=== PATIENT | female | born 1975 | race Caucasian/White ===

== ENCOUNTER 2016-09-24 21:31 | Inpatient (IN) | payer SELFPAY ==
--- NOTE | 2016-09-24 22:39 | Emergency Department Report ---
ED Neuro Deficit HPI - General Chief Complaint: Chest Pain Stated Complaint: CHEST PAIN/WEAKNESS Time Seen by Provider: 09/24/16 22:30 Source: patient, EMS Mode of arrival: Stretcher Limitations: No Limitations - History of Present Illness Initial Comments: 41-year-old female with history of complex migraines with multiple prior episodes of left sided hemiplegia with negative prior MRIs multiple times at this facility and well-documented in the EMR presented today because of left upper extremity and left lower extremity weakness. Patient states that all day she's had some nausea and vomiting around 6 PM she had left upper extremity and left lower extremity weakness and difficulty ambulating. Patient is not diabetic and not on insulin. She does have a history of hypertension but states she takes her medications. She also has a history of seizure disorder but has not had any seizure episodes today. 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 - Related Data Home Medications: Home Medications Medication Instructions Recorded Confirmed Last Taken Amitriptyline [Elavil] 75 mg PO QHS 08/14/15 09/24/16 1 Day Ago [address] [Depakote Dr] 1,000 mg PO BID 08/14/15 09/24/16 1 Day Ago 1000 Lisinopril [Zestril TAB] 40 mg PO QDAY 08/14/15 09/24/16 1 Day Ago 40 Topiramate [Topamax] 50 mg PO DAILY 08/14/15 09/24/16 1 Day Ago 50 Verapamil HCl [Verapamil ER] 240 mg PO DAILY 02/25/16 09/24/16 1 Day Ago 240 Famotidine [Pepcid] 20 mg PO DAILY 09/24/16 09/24/16 Unknown Hydrochlorothiazide [HCTZ] 25 mg PO QDAY 09/24/16 09/24/16 Unknown Omeprazole Magnesium [PriLOSEC Otc] 20 mg PO QDAY 09/24/16 09/24/16 Unknown Rivaroxaban [Xarelto] 20 mg PO QDAY 09/24/16 09/24/16 Unknown Rosuvastatin (Nf) [Crestor] 1 tab PO QHS 09/24/16 09/24/16 Unknown Sucralfate [Carafate] 1 gm PO DAILY 09/24/16 09/24/16 Unknown Allergies/Adverse Reactions: Allergies Allergy/AdvReac Type Severity Reaction Status Date / Time acetaminophen [From Fioricet] Allergy Hives Verified 02/18/15 23:58 butalbital [From Fioricet] Allergy Hives Verified 02/18/15 23:58 caffeine [From Fioricet] Allergy Hives Verified 02/18/15 23:58 gabapentin [From Neurontin] Allergy Unknown Verified 02/18/15 23:58 ketorolac tromethamine Allergy Itching Verified 02/18/15 23:58 [From Toradol] levofloxacin [From Levaquin] Allergy Unknown Verified 02/18/15 23:58 naproxen [From Naprosyn] Allergy Swelling Verified 02/18/15 23:58 nitroglycerin Allergy Rash Verified 02/18/15 23:58 NSAIDS (Non-Steroidal Allergy Unknown Verified 09/24/16 23:45 Anti-Inflamma prochlorperazine edisylate Allergy Unknown Verified 02/18/15 23:58 [From Compazine] prochlorperazine maleate Allergy Unknown Verified 02/18/15 23:58 [From Compazine] Sulfa (Sulfonamide Allergy Hives Verified 08/09/14 21:59 Antibiotics) ibuprofen [From Motrin] AdvReac Unknown Verified 08/09/14 21:59 metoclopramide HCl AdvReac Unknown Verified 08/09/14 21:59 [From Reglan] tramadol AdvReac Shortness Verified 02/06/16 14:57 of Breath ED Review of Systems ROS: Stated complaint: CHEST PAIN/WEAKNESS Other details as noted in HPI Comment: All other systems reviewed and negative Constitutional: denies: chills, fever ENT: denies: ear pain Respiratory: denies: cough Cardiovascular: chest pain Gastrointestinal: nausea. denies: abdominal pain Genitourinary: denies: urgency, dysuria Skin: denies: rash Neurological: weakness, numbness. denies: headache ED Past Medical Hx - Past Medical History Previous Medical History?: Yes Hx Hypertension: Yes Hx CVA: (multiple negative MRI workups for CVA when presented with complic. migraine) Hx Headaches / Migraines: Yes (hemiplegic, and complicated migraines) Hx Seizures: Yes Hx Kidney Stones: Yes Hx Asthma: Yes Hx COPD: No Additional medical history: pancreatitis,DVT,cervical ca and treatment [id number] - Surgical History Past Surgical History?: Yes Hx Cholecystectomy: Yes Hx Appendectomy: Yes Additional Surgical History: Stents in kidneys and removed, bowel repair, liposuction, partial hysterectomy - Social History Smoking Status: Former Smoker Substance Use Type: None - Medications Home Medications: Home Medications Medication Instructions Recorded Confirmed Last Taken Type Amitriptyline [Elavil] 75 mg PO QHS 08/14/15 09/24/16 1 Day Ago History [address] [Depakote Dr] 1,000 mg PO BID 08/14/15 09/24/16 1 Day Ago History 1000 Lisinopril [Zestril TAB] 40 mg PO QDAY 08/14/15 09/24/16 1 Day Ago History 40 Topiramate [Topamax] 50 mg PO DAILY 08/14/15 09/24/16 1 Day Ago History 50 Verapamil HCl [Verapamil ER] 240 mg PO DAILY 02/25/16 09/24/16 1 Day Ago History 240 Famotidine [Pepcid] 20 mg PO DAILY 09/24/16 09/24/16 Unknown History Hydrochlorothiazide [HCTZ] 25 mg PO QDAY 09/24/16 09/24/16 Unknown History Omeprazole Magnesium [PriLOSEC Otc] 20 mg PO QDAY 09/24/16 09/24/16 Unknown History Rivaroxaban [Xarelto] 20 mg PO QDAY 09/24/16 09/24/16 Unknown History Rosuvastatin (Nf) [Crestor] 1 tab PO QHS 09/24/16 09/24/16 Unknown History Sucralfate [Carafate] 1 gm PO DAILY 09/24/16 09/24/16 Unknown History ED Neuro Physical Exam - General Limitations: No Limitations General appearance: alert Suspected Stroke: Yes - Head Head exam: Present: atraumatic - Eye Eye exam: Present: normal appearance - ENT ENT exam: Present: normal exam - Neck Neck exam: Present: normal inspection - Respiratory Respiratory exam: Present: normal lung sounds bilaterally. Absent: respiratory distress - Cardiovascular Cardiovascular Exam: Present: regular rate, normal rhythm - GI/Abdominal GI/Abdominal exam: Present: soft. Absent: distended, tenderness - Neurological Exam Neurological exam: Present: alert, oriented X3 - NIHSS Assessment Interval: Baseline 1a. Level of Consciousness: alert 1b. LOC Questions: answers correctly 1c. LOC Commands: performs tasks correctly 2. Best Gaze: normal 3. Visual: no visual loss 4. Facial Palsy: minor paralysis 5b. Motor Arm Right: no drift 5a. Motor Arm Left: some gravity effort 6a. Motor Leg Left: no drift 6b. Motor Leg Right: some gravity effort 7. Limb Ataxia: absent 8. Sensory: mild/moderate sensory loss 9. Best Language: no aphasia 10. Dysarthria: normal 11. Extinction/Inattention: no abnormality Total Score: 6 Stroke Severity: Moderate Stroke - Psychiatric Psychiatric exam: Present: anxious - Skin Skin exam: Present: intact ED Course Vital Signs 09/24/16 09/24/16 09/24/16 22:10 22:32 22:38 Temperature 99 F Pulse Rate 92 H Respiratory 18 18 Rate Blood Pressure 147/96 O2 Sat by Pulse 100 84 Oximetry 09/24/16 09/24/16 09/24/16 23:00 23:30 23:43 Temperature Pulse Rate 81 91 H Respiratory 19 17 18 Rate Blood Pressure 144/74 150/71 O2 Sat by Pulse 97 97 Oximetry - Reevaluation(s) Reevaluation #1: 09/25/16 00:17 Patient's symptoms appear to be improving slightly, is able to lift up the left arm easier off the bed, however has not regained full strength, facial droop does appear to have resolved. Patient's nausea and pain is also significantly improved. - Consultations Consultation #1: 09/24/16 23:02 Requested consult for neurology, awaiting callback 09/24/16 23:[address] Kole Rodríguez, neurologist president & [employer]o [employer], described the patient's presentation and exam. Had a discussion about whether the patient is a candidate for thrombolysis. Dr. Rodríguez and I both agreed that the patient is not a good candidate due to multiple reasons including the patient being on Xarelto and aspirin, the patient having a lower chance of benefit at 5 hours from onset and that the diagnosis is not clearly a stroke. - Lab Data Result diagrams: 09/24/16 22:28 09/24/16 22:28 Lab Results 09/24/16 09/24/16 09/24/16 Range/Units 22:28 22:28 22:28 WBC 7.9 (4.5-11.0) K/mm3 RBC 3.81 (3.65-5.03) M/mm3 Hgb 12.4 (10.1-14.3) gm/dl Hct 34.7 (30.3-42.9) % MCV 91 (79-97) fl MCH 33 H (28-32) pg MCHC 36 H (30-34) % RDW 13.1 L (13.2-15.2) % Plt Count 258 (140-440) K/mm3 Lymph % (Auto) 27.4 (13.4-35.0) % [place] % (Auto) 6.5 (0.0-7.3) % Eos % (Auto) 1.2 (0.0-4.3) % Baso % (Auto) 0.3 (0.0-1.8) % Lymph # 2.2 (1.2-5.4) K/mm3 [place] # 0.5 (0.0-0.8) K/mm3 Eos # 0.1 (0.0-0.4) K/mm3 Baso # 0.0 (0.0-0.1) K/mm3 Seg Neutrophils % 64.6 (40.0-70.0) % Seg Neutrophils # 5.1 (1.8-7.7) K/mm3 PT 12.5 (12.2-14.9) Sec. INR 0.94 (0.87-1.13) APTT 27.2 (24.2-36.6) Sec. Thrombin Time (15.1-19.6) Sec. Sodium 141 (137-145) mmol/L Potassium 3.5 L (3.6-5.0) mmol/L Chloride 100.7 (98-107) mmol/L Carbon Dioxide 25 (22-30) mmol/L Anion Gap 19 mmol/L BUN 18 H (7-17) mg/dL Creatinine 0.8 (0.7-1.2) mg/dL Estimated GFR > 60 ml/min BUN/Creatinine Ratio 22.50 % Glucose 128 H (65-100) mg/dL Calcium 9.5 (8.4-10.2) mg/dL Troponin T < 0.010 (0.00-0.029) ng/mL 09/24/16 Range/Units 22:28 WBC (4.5-11.0) K/mm3 RBC (3.65-5.03) M/mm3 Hgb (10.1-14.3) gm/dl Hct (30.3-42.9) % MCV (79-97) fl MCH (28-32) pg MCHC (30-34) % RDW (13.2-15.2) % Plt Count (140-440) K/mm3 Lymph % (Auto) (13.4-35.0) % [place] % (Auto) (0.0-7.3) % Eos % (Auto) (0.0-4.3) % Baso % (Auto) (0.0-1.8) % Lymph # (1.2-5.4) K/mm3 [place] # (0.0-0.8) K/mm3 Eos # (0.0-0.4) K/mm3 Baso # (0.0-0.1) K/mm3 Seg Neutrophils % (40.0-70.0) % Seg Neutrophils # (1.8-7.7) K/mm3 PT (12.2-14.9) Sec. INR (0.87-1.13) APTT (24.2-36.6) Sec. Thrombin Time 15.4 (15.1-19.6) Sec. Sodium (137-145) mmol/L Potassium (3.6-5.0) mmol/L Chloride (98-107) mmol/L Carbon Dioxide (22-30) mmol/L Anion Gap mmol/L BUN (7-17) mg/dL Creatinine (0.7-1.2) mg/dL Estimated GFR ml/min BUN/Creatinine Ratio % Glucose (65-100) mg/dL Calcium (8.4-10.2) mg/dL Troponin T (0.00-0.029) ng/mL - Medical Decision Making I had seen the patient at triage and called a code stroke based on the initial exam. Upon documentation reviewed does appear that the patient has had the same symptoms multiple times secondary to complex migraine. Labs, IV, monitor, CT of head ordered x-ray at triage ekg shows nsr at rate of [address]-t changes When I asked the patient about her prior complex migraine she states that she usually has a headache which is not have a headache now. She also had as have chest pain and nausea. Unclear so far whether this is due to complex migraine or an actual CVA but will have to assume worst case scenario. Labs unremarkable CXR shows no widened mediastinum. Critical care attestation.: If time is entered above; I have spent that time in minutes in the direct care of this critically ill patient, excluding procedure time. ED Disposition Clinical Impression: CVA (cerebral vascular accident) Qualifiers: CVA mechanism: unspecified Qualified Code(s): I63.9 - Cerebral infarction, unspecified Chest pain Qualifiers: Chest pain type: unspecified Qualified Code(s): R07.9 - Chest pain, unspecified Disposition: OP ADMITTED IP TO THIS HOSP Is pt being admited?: Yes Does the pt Need Aspirin: Yes Condition: Serious Instructions: Chest Pain (ED) Time of Disposition: 00:17 (spoke to Dr. Quintanilla about admission, will admit the patient)
[2016-09-24 22:40] LABS: Basophils % (Auto) 0.3 % (0.0-1.8); Eosinophils % (Auto) 1.2 % (0.0-4.3); Hematocrit 34.7 % (30.3-42.9); Hemoglobin 12.4 gm/dl (10.1-14.3); Mean Corpuscular HGB Conc 36 % (30-34); Mean Corpuscular Hemoglobin 33 pg (28-32); Mean Corpuscular Volume 91 fl (79-97); Platelet Count 258 K/mm3 (140-440); Red Blood Count 3.81 M/mm3 (3.65-5.03); Red Cell Distribution Width 13.1 % (13.2-15.2); White Blood Count 7.9 K/mm3 (4.5-11.0)
[2016-09-24 22:51] LABS: INR 0.94 (0.87-1.13)
[2016-09-24 22:52] LABS: Partial Thromboplastin Time 27.2 Sec. (24.2-36.6)
[2016-09-24 22:54] LABS: Anion Gap 19 mmol/L; Blood Urea Nitrogen 18 mg/dL (7-17); Calcium 9.5 mg/dL (8.4-10.2); Carbon Dioxide 25 mmol/L (22-30); Chloride 100.7 mmol/L (98-107); Glucose 128 mg/dL (65-100); Potassium 3.5 mmol/L (3.6-5.0); Sodium 141 mmol/L (137-145)
--- NOTE | 2016-09-24 22:58 | Cat Scan Report ---
FINAL REPORT EXAM: CT HEAD/BRAIN WO CON HISTORY: neuro deficits \T\lt; 6hrs or sx present upon awakening TECHNIQUE: CT head without contrast PRIORS: Comparison is dated February 25, 2016 FINDINGS: No acute intra-axial or extra-axial hemorrhage is identified. There is no evidence of midline shift or mass effect. The ventricles and sulci are within normal limits. Belle-white matter differentiation is intact. No acute parenchymal abnormalities seen. Bony calvarium is grossly intact. Visualized portions of the mastoids and paranasal sinuses are unremarkable. IMPRESSION: Negative CT head
[2016-09-24] MEDS ORDERED: REGLAN ONE (23:22)
[2016-09-24] MEDS ORDERED: BENADRYL ONE (23:22)
[2016-09-24] MEDS ORDERED: MORPHINE ONE (23:29)
[2016-09-24] MEDS ORDERED: BENADRYL IV ONE (23:42)
[2016-09-24] MEDS ORDERED: MORPHINE IV ONE (23:42)
[2016-09-25] MEDS ORDERED: ASPIRIN PO ONE (00:11)
--- NOTE | 2016-09-25 00:33 | History and Physical Report ---
History of Present Illness Date of examination: 09/25/16 History of present illness: 41-year-old woman with a history of migraines, seizure, TIAs and hypertension, asthma came to the emergency room with complaints of left-sided weakness and left side numbness which started around 7 PM. She also complained of chest pain in the left substernal area which she describes as sharp, squeezing pain intermittent in nature, lasting 15 minutes, intensity 7/10, radiating to left shoulder. She admits to nausea vomiting, shortness of breath, blurry vision, no diaphoresis or palpitation Patient denies cough, abdominal pain, hematochezia, dysuria, frequency, focal weakness, dysarthria, fever chills, polydipsia polyuria, hot or cold intolerance , easy bruisability, or rash or bleeding from mucosal membrane, rhinorrhea, epistaxis, earache, tinnitus, eye discharge, anxiety, depression. Other review of systems negative PAST SURGICAL HISTORY: Appendectomy, cholecystectomy, , hysterectomy, liposuction and tummy tuck SOCIAL HISTORY: Denies alcohol, tobacco, drugs FAMILY HISTORY: Diabetes Medications and Allergies Allergies Allergy/AdvReac Type Severity Reaction Status Date / Time acetaminophen [From Fioricet] Allergy Hives Verified 02/18/15 23:58 butalbital [From Fioricet] Allergy Hives Verified 02/18/15 23:58 caffeine [From Fioricet] Allergy Hives Verified 02/18/15 23:58 gabapentin [From Neurontin] Allergy Unknown Verified 02/18/15 23:58 ketorolac tromethamine Allergy Itching Verified 02/18/15 23:58 [From Toradol] levofloxacin [From Levaquin] Allergy Unknown Verified 02/18/15 23:58 naproxen [From Naprosyn] Allergy Swelling Verified 02/18/15 23:58 nitroglycerin Allergy Rash Verified 02/18/15 23:58 NSAIDS (Non-Steroidal Allergy Unknown Verified 09/24/16 23:45 Anti-Inflamma prochlorperazine edisylate Allergy Unknown Verified 02/18/15 23:58 [From Compazine] prochlorperazine maleate Allergy Unknown Verified 02/18/15 23:58 [From Compazine] Sulfa (Sulfonamide Allergy Hives Verified 08/09/14 21:59 Antibiotics) ibuprofen [From Motrin] AdvReac Unknown Verified 08/09/14 21:59 metoclopramide HCl AdvReac Unknown Verified 08/09/14 21:59 [From Reglan] tramadol AdvReac Shortness Verified 02/06/16 14:57 of Breath Home Medications Medication Instructions Recorded Confirmed Last Taken Type Amitriptyline [Elavil] 75 mg PO QHS 08/14/15 09/24/16 1 Day Ago History [address] [Depakote Dr] 1,000 mg PO BID 08/14/15 09/24/16 1 Day Ago History 1000 Lisinopril [Zestril TAB] 40 mg PO QDAY 08/14/15 09/24/16 1 Day Ago History 40 Topiramate [Topamax] 50 mg PO DAILY 08/14/15 09/24/16 1 Day Ago History 50 Verapamil HCl [Verapamil ER] 240 mg PO DAILY 02/25/16 09/24/16 1 Day Ago History 240 Famotidine [Pepcid] 20 mg PO DAILY 09/24/16 09/24/16 Unknown History Hydrochlorothiazide [HCTZ] 25 mg PO QDAY 09/24/16 09/24/16 Unknown History Omeprazole Magnesium [PriLOSEC Otc] 20 mg PO QDAY 09/24/16 09/24/16 Unknown History Rivaroxaban [Xarelto] 20 mg PO QDAY 09/24/16 09/24/16 Unknown History Rosuvastatin (Nf) [Crestor] 1 tab PO QHS 09/24/16 09/24/16 Unknown History Sucralfate [Carafate] 1 gm PO DAILY 09/24/16 09/24/16 Unknown History Exam - Physical Exam Narrative exam: General Apperance: The patient sitting in bed no acute distress HEENT: Normocephalic, atraumatic. Pupils equally round and reactive to light, extraocular movement intact, and no sclericterus or JVD or thyromegaly or nodule. Neck supple, no carotid bruit, mucous membranes moist, no exudate or erythema Heart: S1-S2, regular is rhythm Lungs: Clear to auscultation bilaterally, breathing comfortable Abdomen: Positive bowel sounds, soft, nontender, nondistended, no organomegaly Extremities: No edema cyanosis clubbing Skin: no rash, nodule, warm and dry Neuro: Cranial nerves II through XII intact, speech is fluent, motor - poor effort on the left side, motor on the right is 5 over 5 , sensation intact - Constitutional Vitals: Temp Pulse Resp BP Pulse Ox 99 F 91 H 18 150/71 97 09/24/16 22:10 09/24/16 23:30 09/24/16 23:43 09/24/16 23:30 09/24/16 23:30 Results - Labs CBC & Chem 7: 09/24/16 22:28 09/24/16 22:28 Labs: Abnormal lab results 09/24/16 09/24/16 Range/Units 22:28 22:28 MCH 33 H (28-32) pg MCHC 36 H (30-34) % RDW 13.1 L (13.2-15.2) % Potassium 3.5 L (3.6-5.0) mmol/L BUN 18 H (7-17) mg/dL Glucose 128 H (65-100) mg/dL - Imaging and Cardiology EKG: image reviewed Chest x-ray: image reviewed CT Scan - head: report reviewed Assessment and Plan CVA vs TIA Chest pain Hypertension Seizure, stable Asthma History of drug-seeking behavior Admitted to medicine Obtain MRI of the head, carotid Doppler, echo do neurochecks and swallowscreen, Consult neurology Continue xarelto, statin Check cardiac enzymes, stress test ,start IV morphine for pain Continue appropriate outpatient medications DVT prophylaxis with xarelto
[2016-09-25] MEDS ORDERED: ZOFRAN IV PRN (00:36)
[2016-09-25] MEDS ORDERED: APRESOLINE IV PRN (00:36)
[2016-09-25] MEDS ORDERED: MILK OF MAGNESIA PO PRN (00:36)
[2016-09-25] MEDS ORDERED: PROVENTIL IH PRN (00:36)
[2016-09-25] MEDS ORDERED: SODIUM CHLORIDE FLUSH SYRINGE 10 ML IV PRN (00:36)
[2016-09-25] MEDS ORDERED: DULCOLAX PR PRN (00:36)
[2016-09-25 02:18] LABS: Bilirubin,Urine NEG (Negative); Blood,Urine SM (Negative); Ketones,Urine TR mg/dL (Negative); Leukocyte Esterase,Urine TR (Negative); Mucus,Urine 1+ /HPF; Nitrite,Urine NEG (Negative); Protein,Urine <15 mg/dL mg/dL (Negative); Urobilinogen,Urine < 2.0 mg/dL (<2.0)
[2016-09-25 02:47] LABS: Creatine Kinase MB 1.4 ng/mL (0.0-4.0)
[2016-09-25] MEDS: MORPHINE IV PRN ×5 (02:47→22:29)
[2016-09-25 02:48] LABS: Creatine Kinase 71 units/L (30-135)
--- NOTE | 2016-09-25 07:01 | Admit Criteria Form ---
Admission Criteria Documentation: TELEMETRY CARE Telemetry Admission Guidelines (Place 'X' for any and all applicable criteria): Admission to telemetry [A] may be indicated for ANY ONE of the following(1)(2)(3 )(4)(5): [ ]I. Cardiac disease, including ANY ONE of the following (9)(10)(11)(12)(13 ): [ ]a) Postacute ID [ ]b) Low-risk patients with ST-segment elevation ID who have undergone successful percutaneous coronary intervention [ ]c) Unstable angina [ ]d) Suspected ID (until it is ruled out) [ ]e) Post cardiac surgery (first 48 to 72 hours unless complications occur) [ ]f) Acute arrhythmias (including significant tachycardia or bradycardia) [B] [ ]g) Firing of an implantable cardioverter defibrillator [C] [ ]h) Suspected pacemaker or implantable cardioverter defibrillator malfunction (10) [ ]i) New administration or adjustment of an antiarrhythmic drug [D ] [ ]j) Child admitted for acute congestive heart failure [ ]j) Long QT syndrome [ ]k) Advanced heart block (eg, second-degree Mobitz type II, third- degree heart block) [ ]l) Acute myocarditis or pericarditis [ ]m) Short-term (ambulatory or inpatient) monitoring after a cardiac procedure as indicated by ANY ONE of the following [E]: [ ]i) Electrophysiologic studies [ ]ii) Percutaneous coronary intervention with stent placement [ ]iii) Pacemaker placement with cardiac conduction defect [ ]iv) Implantable cardiac defibrillator placement [ ]II. Drug overdose or poisoning with substance that causes arrhythmias or QT prolongation (eg, phenothiazines, sympathomimetic agents, cyclic antidepressants, digitalis, antiarrhythmic drugs)(15) [ ]III. Short-term (ambulatory or inpatient) monitoring after therapeutic or diagnostic procedure requiring conscious sedation or anesthesia (eg, endoscopy, elective cardioversion) [ X]IV. Acute cerebrovascular even[F](18) [ ]V. Massive blood transfusion (eg, at least 10 units of packed red blood cells in 24 hours) [ ]. Variceal bleeding after endoscopy, sclerotherapy, or IV vasopressin [ ]VII. Uncorrected electrolyte abnormalities associated with an increased risk of dangerous arrhythmia [G]; examples include [ ]a) Hyperkalemia with attributable ECG changes [ ]b) Potassium greater than 6.5 mmol/L (mEq/L) in a patient without history of chronic renal disease [ ]c) Prolonged QT attributed to hypokalemia, hypomagnesemia, or hypocalcemia [ ]VIII.Unexplained syncope or other neurologic event suspected of being due to arrhythmia due to a finding that increases risk; examples include(19)(20)(21): [ ]a) High-risk ECG findings (eg, bifascicular block, bradycardia, abnormal QT interval, ventricular pre- excitation) [ ]b) History of previous syncope due to arrhythmia [ ]c) Abnormal ventricular function (eg, reduced ejection fraction ) [ ]d) Exertional or supine syncope [ ]e) Concerning syncope characteristics (eg, sudden loss of consciousness without prodrome) [ ]f) Family history of sudden [ ]g) Use of arrhythmogenic medication [ ]h) Suspected cardiac ischemia [ ]i) Known channelopathy (eg, long QT syndrome, Brugada syndrome, or catecholaminergic paroxysmal ventricular tachycardia) [ ]j) Known structural heart disease (eg, hypertrophic cardiomyopathy , severe valvular disease) [ ]k) Palpitations preceding syncope The original [facility] content created by [facility] has been revised. The portions of the content which have been revised are identified through the use of italic text or in bold, and [facility] has neither reviewed nor approved the modified material. All other unmodified content is copyright [facility]. Please see references footnoted in the original [facility] edition 2016 Admission Criteria Met: Yes
[2016-09-25 08:10] LABS: Creatine Kinase MB 1.3 ng/mL (0.0-4.0)
[2016-09-25 08:15] LABS: Creatine Kinase 62 units/L (30-135)
[2016-09-25] MEDS ORDERED: LEXISCAN IV ONE ×2 (08:21→08:27)
--- NOTE | 2016-09-25 08:38 | XRay Report ---
AP CHEST : 09/24/16 21:31:00 CLINICAL: Chest pain. COMPARISON:02/06/16 FINDINGS: The heart is normal size with a left ventricular contour. Normal pulmonary vessels. Mild aortic tortuosity. The lungs are normally expanded and clear. The bones and soft tissues are unremarkable. IMPRESSION: No acute cardiopulmonary process. Hypertensive changes in the heart and aorta.
[2016-09-25] MEDS ORDERED: NON-FORMULARY (Omeprazole Magnesium [Prilosec Otc] 20 MG) PO SCH (10:00)
[2016-09-25] MEDS ORDERED: PEPCID PO SCH (10:00)
[2016-09-25] MEDS ORDERED: BENADRYL IV ONE ×2 (11:48→23:01)
[2016-09-25] MEDS ORDERED: BENADRYL PO PRN (11:50)
[2016-09-25] MEDS: CARAFATE PO SCH (12:07)
[2016-09-25] MEDS: PROTONIX PO SCH (12:07)
[2016-09-25] MEDS: XARELTO PO SCH (12:07)
--- NOTE | 2016-09-25 12:34 | Consultation ---
History of Present Illness Consult date: 09/25/16 Requesting physician: ELY VAUGHN Reason for Consult: stroke? Chief complaint: L Leg weakness History of present illness: 41 YO F Hx reported stroke in September 2015 Tx @ [place] w/ residual R hand weakness, seizure disorder on VPA [id number] and migraine p/w acute onset L leg weakness @ 5-6 PM. Sx constant and progressed to include L face numbness/tingling and L hemicranial pulsatile ROJAS w/ N/V. There are no clear aggravating, relieving or temporal factors. Severity was enough to cause her concern for recurrent stroke. Past History Past Medical History: migraines, seizures, stroke Past Surgical History: No surgical history Social history: single. denies: alcohol abuse, prescription drug abuse, IV drug use Family history: stroke Medications and Allergies Allergies Allergy/AdvReac Type Severity Reaction Status Date / Time acetaminophen [From Fioricet] Allergy Hives Verified 02/18/15 23:58 butalbital [From Fioricet] Allergy Hives Verified 02/18/15 23:58 caffeine [From Fioricet] Allergy Hives Verified 02/18/15 23:58 gabapentin [From Neurontin] Allergy Unknown Verified 02/18/15 23:58 ketorolac tromethamine Allergy Itching Verified 02/18/15 23:58 [From Toradol] levofloxacin [From Levaquin] Allergy Unknown Verified 02/18/15 23:58 naproxen [From Naprosyn] Allergy Swelling Verified 02/18/15 23:58 nitroglycerin Allergy Rash Verified 02/18/15 23:58 NSAIDS (Non-Steroidal Allergy Unknown Verified 09/24/16 23:45 Anti-Inflamma prochlorperazine edisylate Allergy Unknown Verified 02/18/15 23:58 [From Compazine] prochlorperazine maleate Allergy Unknown Verified 02/18/15 23:58 [From Compazine] Sulfa (Sulfonamide Allergy Hives Verified 08/09/14 21:59 Antibiotics) ibuprofen [From Motrin] AdvReac Unknown Verified 08/09/14 21:59 metoclopramide HCl AdvReac Unknown Verified 08/09/14 21:59 [From Reglan] tramadol AdvReac Shortness Verified 02/06/16 14:57 of Breath Home Medications Medication Instructions Recorded Confirmed Last Taken Type Amitriptyline [Elavil] 75 mg PO QHS 08/14/15 09/24/16 1 Day Ago History [address] [Tammy Rivera] 1,000 mg PO BID 08/14/15 09/24/16 1 Day Ago History 1000 Lisinopril [Zestril TAB] 40 mg PO QDAY 08/14/15 09/24/16 1 Day Ago History 40 Topiramate [Topamax] 50 mg PO DAILY 08/14/15 09/24/16 1 Day Ago History 50 Verapamil HCl [Verapamil ER] 240 mg PO DAILY 02/25/16 09/24/16 1 Day Ago History 240 Famotidine [Pepcid] 20 mg PO DAILY 09/24/16 09/24/16 Unknown History Hydrochlorothiazide [HCTZ] 25 mg PO QDAY 09/24/16 09/24/16 Unknown History Omeprazole Magnesium [PriLOSEC Otc] 20 mg PO QDAY 09/24/16 09/24/16 Unknown History Rivaroxaban [Xarelto] 20 mg PO QDAY 09/24/16 09/24/16 Unknown History Rosuvastatin (Nf) [Crestor] 1 tab PO QHS 09/24/16 09/24/16 Unknown History Sucralfate [Carafate] 1 gm PO DAILY 09/24/16 09/24/16 Unknown History Active Meds: Active Medications Albuterol (Proventil) 2.5 mg IH Q3HRT PRN PRN Reason: Shortness Of Breath Amitriptyline HCl (Elavil) 75 mg PO QHS KATERIN Bisacodyl (Dulcolax) 10 mg AL QDAY PRN PRN Reason: Constipation Diphenhydramine HCl (Benadryl) 25 mg PO Q6H PRN PRN Reason: Nausea Divalproex Sodium (Tammy Rivera) 1,000 mg PO BID [facility] Last Admin: 09/25/16 12:07 Dose: 1,000 mg Hydralazine HCl (Apresoline) 5 mg IV Q6H PRN PRN Reason: Keep SBP between 160-185 mm Hg Magnesium Hydroxide (Milk Of Magnesia) 30 ml PO Q4H PRN PRN Reason: Constipation Morphine Sulfate (Morphine) 2 mg IV Q4H PRN PRN Reason: Pain, Moderate (4-6) Last Admin: 09/25/16 12:10 Dose: 2 mg Ondansetron HCl (Zofran) 4 mg IV Q8H PRN PRN Reason: N/V unrelieved by Reglan Pantoprazole Sodium (Protonix) 20 mg PO QDAY [facility] Last Admin: 09/25/16 12:07 Dose: 20 mg Rivaroxaban (Xarelto) 20 mg PO QDAY [facility] PRN Reason: Protocol Last Admin: 09/25/16 12:07 Dose: 20 mg Simvastatin (Zocor) 20 mg PO QHS [facility] Sodium Chloride (Sodium Chloride Flush Syringe 10 Ml) 10 ml IV PRN PRN PRN Reason: LINE FLUSH Sucralfate (Carafate) 1 gm PO DAILY [facility] Last Admin: 09/25/16 12:07 Dose: 1 gm Topiramate (Topamax) 50 mg PO DAILY [facility] Review of Systems All systems: negative Constitutional: weakness, chronic headaches, chronic pain Eyes: left: blurred vision, loss of vision, bilateral: photophobia Gastrointestinal: nausea, vomiting Neurological: weakness, parathesias, numbness, tingling, seizures (Hx), headaches, migraines, change in mentation, confusion, motor disturbance, sensory deficit, loss of vision (left eye blurry), no paralysis, no syncope, no aphasia Physical Examination - Vital Signs Vital Signs: Vital Signs Temp Pulse Resp BP Pulse Ox 99 F 92 H 18 147/96 100 09/24/16 22:10 09/24/16 22:10 09/24/16 22:10 09/24/16 22:10 09/24/16 22:10 - Constitutional General appearance: comfortable - EENT EENT: Present: ATNC, PERRL, mucous membranes moist, hearing intact, vision intact - Respiratory Respiratory: Present: chest non-tender, normal breath sounds, no respiratory distress - Cardiovascular Cardiovascular: Present: regular rate Extremities: Present: no peripheral edema bilatateraly, no clubbing, cyanosis, no inflammation, no ischemia or petechiae - Gastrointestinal Gastrointestinal: Present: normoactive bowel sounds, soft, non-distended - Integumentary Integumentary: Present: normal - Neurologic Cranial nerve examination: PERRL, EOMI, VFF, tongue midline, intact, intact shoulder shrug, Intact Vestibulo-ocular r, intact corneal reflex, normal palatal elevation Speech examination: intact Sensorimotor examination: intact, other (giveaway power as details below) Detailed motor examination: other (giveaway power) Motor examination - right side: 4/5: biceps, triceps, wrist flexion, wrist extension, generator assembler, hip flexors, knee extensors, dorsiflexion, toe extension (EHL) , plantarflexion Motor examination - left side: 3/5: hip flexors, knee extensors, dorsiflexion, toe extension (EHL), plantarflexion, 4/5: biceps, triceps, wrist flexion, wrist extension, generator assembler Detailed sensory examination: light touch (decr on LLE), temperature (dr in LLE) , extinction (partial to DSS tactile stim), other Reflex and gait examination: intact Reflexes: 2+: ankle, bicep, knee, tricep - Musculoskeletal Musculoskeletal: Present: no fluid collection, no pain, normal range of motion - Psychiatric Psychiatric: Present: other (poor effort) Results - Laboratory Findings CBC and BMP: 09/24/16 22:28 09/24/16 22:28 Abnormal Lab Findings: Abnormal Labs 09/25/16 01:05 Urine WBC (Auto) 12.0 H Assessment and Plan 41 YO F Hx reported stroke in September 2015 Tx @ [place] w/ residual R hand weakness, seizure disorder on VPA 2968-0774 and migraine on TPX 50/Elavil 75 and also DVT on Xarelto p/w acute onset L leg weakness w/ progressive L face numbness/ tingling, left eye blurring of visio followed by L hemicranial pulsatile ROJAS w/ N /V. Neuro eam w/ poor effort giveaway throughout huong LLE w/ reported decreased sensation and ? extinction to DSS tactile but not visual. 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 CTH normal w/o acute/ chronic lesions. CDS neg. Recs: 1. No indication for pharmacologic thrombolysis with IV tPA or mechanical thrombectomy due to last known normal > 6 hrs from presentation. Current NIHSS 3. 2. Telemetry bed w/ Q4 hour neuro checks 3. Brain imaging: MRI Brain w/o Carlos Stroke Protocol 4. If MRI Brain confirms infarct: A. TTE to eval for possible cardiac source of embolism B. Serum Labs: HgA1c, LDL 5. Permissive HTN for first 24-48 hours: HOB < 30 degrees, isotonic IVF prn and refrain from active Tx of HTN unless BP > 185/105 or pt develops malignant HTN. Can lower MAPs by 10-15% daily to reach goal SBP 120-160 after permissive HTN period or if MRI neg for infarction. 6. Secondary stroke prevention: Cont home Xarelo and Crestor. 7. For ROJAS: Benadryl 50mg IVx 1. Sumatriptan prn. adverse rxns to Toradol/ Decadron/Fiorice8 8. F/E/N: isotonic IVF prn, prn replete, bedside speech/swallow eval prior to PO intake 9. DVT Prophylaxis 10. Stroke education, PT/OT/Speech Therapy consults, CM evaluation 11. For any changes in neurologic status, pls obtain STAT CTH w/o contrast and call neurology
[2016-09-25] MEDS: TOPAMAX PO SCH (13:20)
[2016-09-25] MEDS ORDERED: IMITREX SUB-Q PRN (14:00)
--- NOTE | 2016-09-25 14:26 | Magnetic Resonance Report ---
MRI of the brain without contrast. History: Stroke. Procedure: Routine brain protocol. Findings: Comparison made to multiple previous studies. The posterior fossa is normal. The ventricles are normal in size and contour. There are no masses or extra-axial collections. The jaquez-white matter junction is normal. There is no restricted diffusion. The pituitary gland is normal. The visualized extracranial structures are unremarkable except for minimal evidence of ethmoid sinusitis. Impression: No significant intracranial findings. Minimal chronic ethmoid sinusitis.
--- NOTE | 2016-09-25 16:18 | Progress Note ---
Subjective Date of service: 09/25/16 Interval history: Assessment and planning Suspected stroke: MRI reviewed. No acute changes Neurology note reviewed and appreciated Possible factitious versus complex migraine Continue PT and OT Patient is requesting IV Benadryl for everything including nausea anxiety and headaches She says that his only one that helps her. Chronic headaches/migraine: home meds reconciled and he started History DVT: Continue xarelto Seizure disorder: Continue seizure medicines Urine analysis reviewed: Possible UTI asymptomatic Restart the patient on oral antibiotics Objective - Constitutional Vitals: Vital Signs - 12hr 09/25/16 09/25/16 09/25/16 06:00 07:00 07:11 Temperature 97.7 F 97.6 F Pulse Rate Pulse Rate [ 72 67 Radial] Respiratory 20 16 20 Rate Blood Pressure Blood Pressure 124/62 171/77 [Left Arm] O2 Sat by Pulse 95 96 Oximetry 09/25/16 09/25/16 09/25/16 08:32 09:06 09:15 Temperature Pulse Rate 71 86 Pulse Rate [ Radial] Respiratory Rate Blood Pressure 158/107 153/101 Blood Pressure [Left Arm] O2 Sat by Pulse 96 Oximetry 09/25/16 09/25/16 09/25/16 09:16 09:17 09:18 Temperature Pulse Rate 94 H 84 80 Pulse Rate [ Radial] Respiratory Rate Blood Pressure 169/106 141/95 143/97 Blood Pressure [Left Arm] O2 Sat by Pulse Oximetry 09/25/16 09/25/16 09/25/16 09:19 09:20 09:22 Temperature Pulse Rate 76 76 85 Pulse Rate [ Radial] Respiratory Rate Blood Pressure 163/98 152/97 Blood Pressure [Left Arm] O2 Sat by Pulse Oximetry General appearance: Present: no acute distress - EENT Eyes: PERRL, EOM intact ENT: hearing intact, clear oral mucosa - Neck Neck: supple, normal ROM, no masses or JVD - Respiratory Respiratory effort: normal Respiratory: bilateral: CTA - Cardiovascular Rhythm: regular Heart Sounds: Present: S1 & S2 Extremities: No edema - Gastrointestinal General gastrointestinal: Present: soft, non-tender. Absent: hepatomegaly, splenomegaly Rectal Exam: deferred - Integumentary Integumentary: clear - Neurologic Neurologic: moves all extremities (patient does not put effort to assess neurological testing of motor power) - Labs CBC & Chem 7: 09/24/16 22:28 09/24/16 22:28 Labs: Abnormal lab results 09/25/16 Range/Units 01:05 Urine WBC (Auto) 12.0 H (0.0-6.0) /HPF
[2016-09-25] MEDS ORDERED: ZOCOR PO SCH (22:00)
[2016-09-25] MEDS ORDERED: ELAVIL PO SCH (22:00)
[2016-09-25] MEDS ORDERED: AMITRIPTYLINE 75 MG PO SCH (22:00)
--- NOTE | 2016-09-26 04:13 | Treadmill Report ---
REFERRING PHYSICIAN: Dr. Treva Quintanilla. DESCRIPTION OF PROCEDURE: The patient received 10 mEq of technetium 99m Myoview intravenously under resting condition. Resting myocardial perfusion scan was done. Subsequently, the patient underwent Lexiscan stress test as per the protocol. During Lexiscan stress, the patient received 28 mCi of technetium 99m Myoview intravenously. After 30-60 minutes, post stress images were done. Computerized reconstruction images were performed for analysis. The post-stress images revealed uniform distribution of the radiopharmaceutical in the left ventricular myocardium. Gated study did not reveal any wall motion abnormality. Left ventricular ejection fraction was low normal and was calculated to be 51%. The resting images did not reveal any perfusion abnormality. CONCLUSION: 1. Normal resting and stress myocardial scan images after the patient underwent Lexiscan stress test. 2. No wall motion abnormality. 3. Low normal left ventricular ejection fraction of 51%. JOB# [id number] [facility]
--- NOTE | 2016-09-26 11:32 | Event Note ---
Date: 09/26/16 MRI Brain reviewed and w/o acute/chronic lesions. 41 YO F Hx reported stroke in September 2015 Tx @ [place] w/ residual R hand weakness, seizure disorder on VPA 1015-4294 and migraine on TPX 50/Elavil 75 and also DVT on Xarelto p/w acute onset L leg weakness w/ progressive L face numbness/ tingling, left eye blurring of vision followed by L hemicranial pulsatile ROJAS w/ N/V. Neuro exam w/ poor effort giveaway throughout huong LLE w/ reported decreased sensation and ? extinction to DSS tactile but not visual. I am suspicious for factitious disorder/migraine considering neg MRI Brain. No clinical features to clearly suggest acute or even prior stroke. CTH normal w/o acute/chronic lesions. CDs neg. Recs: 1. No indication for pharmacologic thrombolysis with IV tPA or mechanical thrombectomy due to last known normal > 6 hrs from presentation. Current NIHSS 3. 2. Telemetry bed w/ Q4 hour neuro checks 3. Can lower MAPs by 10-15% daily to reach goal SBP 120-160 as MRI neg for infarction. 4. Secondary stroke prevention: Cont home Xarelo and Crestor. 5. For ROJAS: Benadryl 50mg IVx 1. Sumatriptan prn. adverse rxns to Toradol/ Decadron/Fiorice8 6. For any changes in neurologic status, pls obtain STAT CTH w/o contrast and call neurology 7. If pt remains clinically stable, no neurologic contraindication for discharge w/ outpt fu prn
[2016-09-26] MEDS: CARAFATE PO SCH (12:09)
[2016-09-26] MEDS: MORPHINE IV PRN (12:10)
[2016-09-26] MEDS: TOPAMAX PO SCH (12:10)
[2016-09-26] MEDS: PROTONIX PO SCH (12:10)
[2016-09-26] MEDS: XARELTO PO SCH (12:10)
--- NOTE | 2016-09-26 12:23 | Discharge Summary ---
Providers - Providers Date of Admission: 09/25/16 00:36 Date of discharge: 09/26/16 Attending physician: EMRE MARRUFO Primary care physician: [employer] Hospitalization Condition: Serious Disposition: DC/TX HOME UNDER HOME HEALTH Core Measure Documentation - Palliative Care Palliative Care/ Comfort Measures: Not Applicable - Core Measures Any of the following diagnoses?: none Exam - Constitutional Vitals: Temp Pulse Resp BP Pulse Ox 97.8 F 75 18 133/78 98 09/26/16 08:00 09/26/16 08:00 09/26/16 08:00 09/26/16 08:00 09/26/16 08:00 General appearance: Present: no acute distress, well-nourished - EENT Eyes: Present: PERRL, EOM intact - Neck Neck: Present: supple, normal ROM - Respiratory Respiratory effort: normal Respiratory: negative: rales, rhonchi, wheezing - Cardiovascular Rhythm: regular Heart Sounds: Present: S1 & S2 - Extremities Extremities: no ischemia, pulses intact, pulses symmetrical Peripheral Pulses: within normal limits - Abdominal General gastrointestinal: Present: soft, non-tender, non-distended, normal bowel sounds - Integumentary Integumentary: Present: clear, warm - Musculoskeletal Musculoskeletal: strength equal bilaterally - Psychiatric Psychiatric: appropriate mood/affect, cooperative - Neurologic Neurologic: CNII-XII intact, moves all extremities Plan Activity: advance as tolerated Diet: other (cardiac diet) Special Instructions: physical therapy Additional Instructions: If you have focal weakness or numbness, contact MD or go to ER Follow up with: PRIMARY CARE, [Primary Care Provider] - 3-5 Days ARTEMIO SPENCER MD [Staff Physician] - 7 Days Prescriptions: Lisinopril [Zestril TAB] 40 mg PO QDAY #30 tablet Rosuvastatin (Nf) [Crestor] 1 tab PO QHS #30 tablet
[2016-09-26 17:28] VITALS: BP 102/67
== END 2016-09-26 18:12 | disposition home health service (06) | DRG 103 ==
LOC: ED 21:31 → 4A 09-25 00:36
PROVIDERS: ADMIT Internal Medicine; ATTEND Internal Medicine
PROC: 4A02XM4 Measurement of Cardiac Total Activity, External Approach (ICD-10-PCS; principal; 2016-09-25)
DX: G43.809 Other migraine, not intractable, without status migrainosus (principal); N39.0 Urinary tract infection, site not specified; G43.909 Migraine, unspecified, not intractable, without status migrainosus; I10 Essential (primary) hypertension; G40.909 Epilepsy, unspecified, not intractable, without status epilepticus; J45.909 Unspecified asthma, uncomplicated; G44.89 Other headache syndrome; F41.9 Anxiety disorder, unspecified; R07.9 Chest pain, unspecified; Z87.442 Personal history of urinary calculi; Z90.49 Acquired absence of other specified parts of digestive tract; Z90.710 Acquired absence of both cervix and uterus; Z88.6 Allergy status to analgesic agent; Z88.8 Allergy status to other drugs, medicaments and biological substances; Z88.2 Allergy status to sulfonamides; Z86.718 Personal history of other venous thrombosis and embolism; Z86.73 Personal history of transient ischemic attack (TIA), and cerebral infarction without residual deficits; Z83.3 Family history of diabetes mellitus; Z82.3 Family history of stroke
CPT/HCPCS: 36415; 70450; 70551; 71010; 78452; 80048; 80061; 81001; 81025; 82550; 82553; 84484; 85025; 85610; 85670; 85730; 93005; 93010; 93017; 93306; 93880; 96374; 96375; A9502; J1200; J2270; J2765; J2785; J3030

== ENCOUNTER 2019-08-03 19:18 | Emergency (ER) | payer SELFPAY ==
--- NOTE | 2019-08-03 20:18 | Emergency Department Report ---
Blank Doc - Documentation Documentation: 44-year-old female that presents with vaginal discharge and left flank pain. This initial assessment/diagnostic orders/clinical plan/treatment(s) is/are subject to change based on patient's health status, clinical progression and re- assessment by fellow clinical providers in the ED. Further treatment and workup at subsequent clinical providers discretion. Patient/guardians urged not to elope from the ED as their condition may be serious if not clinically assessed and managed. Initial orders include: 1- Patient sent to [facility] for further evaluation and treatment 2- pelvic exam to be done 3- UA
[2019-08-03 20:20] VITALS: BP 145/92
[2019-08-03 21:26] LABS: Bilirubin,Urine NEG (Negative); Blood,Urine SM (Negative); Color,Urine Amber (Yellow); Mucus,Urine 3+ /HPF; Renal Epithelial Cells,Urine <1 /LPF; Urobilinogen,Urine < 2.0 mg/dL (<2.0)
[2019-08-03 21:37] LABS: HCG Qualitative,Urine Negative (Negative)
[2019-08-04] MEDS ORDERED: AZITHROMYCIN 250 MG TAB PO ONE (00:47)
[2019-08-04] MEDS ORDERED: SODIUM CHLORIDE 0.9% 1000 ML 1,000 ML IV ONE (00:47)
[2019-08-04] MEDS ORDERED: cefTRIAXone/NS 1 GM/50 ML 1 GM/50 ML BAG IV ONE (01:00)
[2019-08-04] MEDS ORDERED: ONDANSETRON 4 MG/2 ML INJ IV ONE (01:01)
[2019-08-04] MEDS ORDERED: MORPHINE 4 MG/1 ML INJ IV ONE (01:01)
[2019-08-04] MEDS ORDERED: diphenhydrAMINE 50 MG/ML VIAL IV ONE ×2 (01:04→02:57)
--- NOTE | 2019-08-04 01:24 | Emergency Department Report ---
ED Abdominal Pain HPI - General Chief Complaint: Urogenital-Female Stated Complaint: KIDNEY STONES Time Seen by Provider: 08/03/19 20:17 Source: patient Mode of arrival: Ambulatory Limitations: No Limitations - History of Present Illness Initial Comments: 44-year-old female that presents with vaginal discharge and left flank pain. 5/10 hx of renal stones, there is intermittent nausea , no vomiting, there is dysuria, frequency, hematuria,. Symptoms are exacerbated by voiding, symptoms are relieved by nothing. pt has white fishy discharge that started 2 days ago. MD Complaint: abdominal pain, flank pain Onset/Timin -: days(s) Location: bilateral flank Radiation: suprapubic Severity: moderate Severity scale (0 -10): 5 Quality: aching Consistency: intermittent Improves With: nothing Worsens With: other (voiding ) Associated Symptoms: nausea, dysuria. denies: diarrhea, fever, chills, constipation, melena - Related Data LMP (females 10-50): other (s/p BRANDY) Home Medications Medication Instructions Recorded Confirmed Last Taken Amitriptyline [Elavil] 75 mg PO QHS 08/14/15 09/24/16 1 Day Ago ~02/24/[address] [Depakote Dr] 1,000 mg PO BID 08/14/15 09/24/16 1 Day Ago ~02/24/16 1000 Topiramate [Topamax] 50 mg PO DAILY 08/14/15 09/24/16 1 Day Ago ~02/24/16 50 Omeprazole Magnesium [PriLOSEC Otc] 20 mg PO QDAY 09/24/16 09/24/16 Unknown Rivaroxaban [Xarelto] 20 mg PO QDAY 09/24/16 09/24/16 Unknown Sucralfate [Carafate] 1 gm PO DAILY 09/24/16 09/24/16 Unknown hydroCHLOROthiazide [HCTZ] 25 mg PO QDAY 09/24/16 09/24/16 Unknown Previous Rx's Medication Instructions Recorded Last Taken Type Rosuvastatin (Nf) [Crestor] 1 tab PO QHS #30 tablet 09/26/16 Unknown Rx lisinopriL [Zestril TAB] 40 mg PO QDAY #30 tablet 09/26/16 Unknown Rx Azithromycin 1,000 mg PO ONCE #2 tablet 08/04/19 Unknown Rx Nitrofurantoin [place]/M-Cryst 100 mg PO BID 7 Days #4 capsule 08/04/19 Unknown Rx [Macrobid CAP] metroNIDAZOLE [Flagyl] 500 mg PO BID 7 Days #14 tab 08/04/19 Unknown Rx Allergies Allergy/AdvReac Type Severity Reaction Status Date / Time acetaminophen [From Fioricet] Allergy Hives Verified 02/18/15 23:58 butalbital [From Fioricet] Allergy Hives Verified 02/18/15 23:58 gabapentin [From Neurontin] Allergy Unknown Verified 02/18/15 23:58 ketorolac tromethamine Allergy Itching Verified 02/18/15 23:58 [From Toradol] levofloxacin [From Levaquin] Allergy Unknown Verified 02/18/15 23:58 naproxen [From Naprosyn] Allergy Swelling Verified 02/18/15 23:58 nitroglycerin Allergy Rash Verified 02/18/15 23:58 NSAIDS (Non-Steroidal Allergy Unknown Verified 09/24/16 23:45 Anti-Inflamma prochlorperazine edisylate Allergy Unknown Verified 02/18/15 23:58 [From Compazine] prochlorperazine maleate Allergy Unknown Verified 02/18/15 23:58 [From Compazine] Sulfa (Sulfonamide Allergy Hives Verified 08/09/14 21:59 Antibiotics) ibuprofen [From Motrin] AdvReac Unknown Verified 08/09/14 21:59 metoclopramide HCl AdvReac Unknown Verified 08/09/14 21:59 [From Reglan] tramadol AdvReac Shortness Verified 02/06/16 14:57 of Breath ED Review of Systems ROS: Stated complaint: KIDNEY STONES Other details as noted in HPI Constitutional: denies: chills, fever Eyes: denies: eye pain, eye discharge, vision change ENT: denies: ear pain, throat pain Respiratory: denies: cough, shortness of breath, wheezing Cardiovascular: denies: chest pain, palpitations Endocrine: no symptoms reported Gastrointestinal: abdominal pain, nausea. denies: vomiting, diarrhea, constipation, hematemesis, melena, hematochezia Genitourinary: urgency, dysuria, frequency, discharge Musculoskeletal: back pain (bilat flank) Skin: denies: rash, lesions Neurological: denies: headache, weakness, paresthesias Psychiatric: denies: anxiety, depression Hematological/Lymphatic: denies: easy bleeding, easy bruising ED Past Medical Hx - Past Medical History Hx Hypertension: Yes Hx CVA: (multiple negative MRI workups for CVA when presented with complic. migraine) Hx Congestive Heart Failure: No Hx Diabetes: No Hx Headaches / Migraines: Yes (hemiplegic, and complicated migraines) Hx Seizures: Yes Hx Kidney Stones: Yes Hx Asthma: Yes Hx COPD: No Additional medical history: pancreatitis,DVT,cervical ca and treatment [id number] - Surgical History Hx Cholecystectomy: Yes Hx Appendectomy: Yes Additional Surgical History: Stents in kidneys and removed, bowel repair, liposuction, partial hysterectomy - Social History Smoking Status: Never Smoker Substance Use Type: None - Medications Home Medications: Home Medications Medication Instructions Recorded Confirmed Last Taken Type Amitriptyline [Elavil] 75 mg PO QHS 08/14/15 09/24/16 1 Day Ago History ~02/24/[address] [Depakote Dr] 1,000 mg PO BID 08/14/15 09/24/16 1 Day Ago History ~02/24/16 1000 Topiramate [Topamax] 50 mg PO DAILY 08/14/15 09/24/16 1 Day Ago History ~02/24/16 50 Omeprazole Magnesium [PriLOSEC Otc] 20 mg PO QDAY 09/24/16 09/24/16 Unknown History Rivaroxaban [Xarelto] 20 mg PO QDAY 09/24/16 09/24/16 Unknown History Sucralfate [Carafate] 1 gm PO DAILY 09/24/16 09/24/16 Unknown History hydroCHLOROthiazide [HCTZ] 25 mg PO QDAY 09/24/16 09/24/16 Unknown History Rosuvastatin (Nf) [Crestor] 1 tab PO QHS #30 tablet 09/26/16 Unknown Rx lisinopriL [Zestril TAB] 40 mg PO QDAY #30 tablet 09/26/16 Unknown Rx Azithromycin 1,000 mg PO ONCE #2 tablet 08/04/19 Unknown Rx Nitrofurantoin [place]/M-Cryst 100 mg PO BID 7 Days #4 capsule 08/04/19 Unknown Rx [Macrobid CAP] metroNIDAZOLE [Flagyl] 500 mg PO BID 7 Days #14 tab 08/04/19 Unknown Rx ED Physical Exam - General Limitations: No Limitations General appearance: alert, in no apparent distress - Head Head exam: Present: atraumatic, normocephalic - Eye Eye exam: Present: normal appearance, PERRL, EOMI Pupils: Present: normal accommodation - ENT ENT exam: Present: mucous membranes moist - Neck Neck exam: Present: normal inspection, full ROM. Absent: tenderness - Respiratory Respiratory exam: Present: normal lung sounds bilaterally. Absent: respiratory distress, wheezes, stridor, chest wall tenderness - Cardiovascular Cardiovascular Exam: Present: regular rate, normal rhythm, normal heart sounds. Absent: systolic murmur, diastolic murmur, rubs, gallop - GI/Abdominal GI/Abdominal exam: Present: soft, normal bowel sounds. Absent: distended, tenderness, bruit, hernia - Rectal Rectal exam: Present: deferred - External exam: Present: other (Exam deferred per patient ) - Extremities Exam Extremities exam: Present: normal inspection - Back Exam Back exam: Present: normal inspection, full ROM, tenderness, CVA tenderness (R), CVA tenderness (L). Absent: vertebral tenderness - Neurological Exam Neurological exam: Present: alert, oriented X3, CN II-XII intact - Psychiatric Psychiatric exam: Present: normal affect, normal mood - Skin Skin exam: Present: warm, dry, intact, normal color. Absent: rash ED Course Vital Signs 08/03/19 08/04/19 08/04/19 20:18 01:25 01:55 Temperature 98.2 F Pulse Rate 88 Respiratory 18 16 16 Rate Blood Pressure 145/92 O2 Sat by Pulse 95 Oximetry ED Medical Decision Making - Lab Data Result diagrams: 08/04/19 01:32 08/04/19 01:32 Labs 08/03/19 08/04/19 08/04/19 Unknown 01:32 01:32 WBC 5.9 RBC 3.93 Hgb 12.8 Hct 36.9 MCV 94 MCH 32 MCHC 35 H RDW 12.5 L Plt Count 281 Lymph % (Auto) 33.8 [place] % (Auto) 8.3 H Eos % (Auto) 0.9 Baso % (Auto) 0.6 Lymph # 2.0 [place] # 0.5 Eos # 0.1 Baso # 0.0 Seg Neutrophils % 56.4 Seg Neutrophils # 3.3 Sodium 142 Potassium 4.0 Chloride 102.3 Carbon Dioxide 25 Anion Gap 19 BUN 16 Creatinine 0.7 Estimated GFR > 60 BUN/Creatinine Ratio 23 Glucose 101 H Calcium 10.2 Total Bilirubin 0.30 AST 20 ALT 11 Alkaline Phosphatase 99 Total Protein 7.2 Albumin 4.8 Albumin/Globulin Ratio 2.0 Urine Color Angela Urine Turbidity Cloudy Urine pH 5.0 Ur Specific [place] 1.025 Urine Protein 30 mg/dl Urine Glucose (UA) Neg Urine Ketones Neg Urine Blood Sm Urine Nitrite Neg Urine Bilirubin Neg Urine Urobilinogen < 2.0 Ur Leukocyte Esterase Lg Urine WBC (Auto) 61.0 H Urine RBC (Auto) 16.0 U Epithel Cells (Auto) 28.0 H Ur Renal Epithelial Cell <1 Urine Mucus 3+ Urine HCG, Qual Negative - Radiology Data Radiology results: report reviewed, image reviewed Findings Reporting MD: Pan Edwards Dictation Time: August 04, 2019 01:03 Multimedia Services Manager: Not available Game Preserve Manager Date: CT abdomen pelvis wo con INDICATION / CLINICAL INFORMATION: RENAL STONE PROTOCOL!!! Pt complains of LEFT sided flank pain. Hx of a previous stone(s) in 2004 Hx of Appendectomy, Partial Hysterectomy, Cholecystectomy. TECHNIQUE: All CT scans at this location are performed using CT dose reduction for ALARA by means of automated exposure control. COMPARISON: 08/10/2014 FINDINGS: No free fluid is seen in the abdomen. No stones are seen in the kidn eys. There is no evidence of hydronephrosis. The gallbladder has been surgically removed. The liver, spleen, kidneys, pancreas, adrenal glands and great vessels are normal. In the pelvis, no free fluid is seen. No enlarged lymph nodes are identified. The bladder is mildly distended. The appendix is been surgically removed. Other than degenerative change in the spine, no significant skeletal abnormality is seen. IMPRESSION: Cholecystectomy. No acute findings Signer Name: Pan Edwards MD FACR Signed: 08/04/2019 1:03 AM Workstation Name: [id number] - Medical Decision Making This is a UTI see labs above. Patient treated for BV as well. Patient will follow-up with [facility] patient will follow-up with primary care doctor , CT normal there are no renal stones no pyelonephritis. Patient is tolerating p.o. intake at this time without nausea vomiting she is amatory with steady gait with no distress. Patient DC'd home in stable condition at this time. Critical care attestation.: If time is entered above; I have spent that time in minutes in the direct care of this critically ill patient, excluding procedure time. ED Disposition Clinical Impression: UTI (urinary tract infection) Qualifiers: Urinary tract infection type: acute cystitis Hematuria presence: without hematuria Qualified Code(s): N30.00 - Acute cystitis without hematuria Vaginitis Qualifiers: Chronicity: acute Qualified Code(s): N76.0 - Acute vaginitis Disposition: TO HOME OR SELFCARE Is pt being admited?: No Does the pt Need Aspirin: No Condition: Stable Instructions: Urinary Tract Infection in Women (ED), Vaginitis (ED) Prescriptions: Azithromycin 1,000 mg PO ONCE #2 tablet metroNIDAZOLE [Flagyl] 500 mg PO BID 7 Days #14 tab Nitrofurantoin [place]/M-Cryst [Macrobid CAP] 100 mg PO BID 7 Days #4 capsule Referrals: PRIMARY CARE, [Primary Care Provider] - 3-5 Days Forms: Work/School Release Form(ED) Time of Disposition: 03:06
[2019-08-04 01:59] LABS: Basophils % (Auto) 0.6 % (0.0-1.8); Eosinophils # (Auto) 0.1 K/mm3 (0.0-0.4); Eosinophils % (Auto) 0.9 % (0.0-4.3); Hematocrit 36.9 % (30.3-42.9); Hemoglobin 12.8 gm/dl (10.1-14.3); Lymphocytes % (Auto) 33.8 % (13.4-35.0); Mean Corpuscular HGB Conc 35 % (30-34); Mean Corpuscular Volume 94 fl (79-97); Monocytes # (Auto) 0.5 K/mm3 (0.0-0.8); Monocytes % (Auto) 8.3 % (0.0-7.3); Platelet Count 281 K/mm3 (140-440); Red Blood Count 3.93 M/mm3 (3.65-5.03); Red Cell Distribution Width 12.5 % (13.2-15.2)
--- NOTE | 2019-08-04 02:08 | Cat Scan Report ---
CT abdomen pelvis wo con INDICATION / CLINICAL INFORMATION: RENAL STONE PROTOCOL!!! Pt complains of LEFT sided flank pain. Hx of a previous stone(s) in 2004 Hx o f Appendectomy, Partial Hysterectomy, Cholecystectomy. TECHNIQUE: All CT scans at this location are performed using CT dose reduction for ALARA by means of automated e xposure control. COMPARISON: 08/10/2014 FINDINGS: No free fluid is seen in the abdomen. No stones are seen in the kidneys. There is no evidence of hydr onephrosis. The gallbladder has been surgically removed. The liver, spleen, kidneys, pancreas, adrena l glands and great vessels are normal. In the pelvis, no free fluid is seen. No enlarged lymph nodes are identified. The bladder is mildly d istended. The appendix is been surgically removed. Other than degenerative change in the spine, no si gnificant skeletal abnormality is seen. IMPRESSION: Cholecystectomy. No acute findings Signer Name: Pan Edwards MD FACR Signed: 08/04/2019 2:03 AM Workstation Name: [id number]
[2019-08-04 02:19] LABS: Alanine Aminotransferase 11 units/L (7-56); Albumin 4.8 g/dL (3.9-5); BUN/Creatinine Ratio 23; Blood Urea Nitrogen 16 mg/dL (7-17); Calcium 10.2 mg/dL (8.4-10.2); Hemolysis Index 18
[2019-08-04] MEDS ORDERED: dexAMETHasone 20 MG/5 ML VIAL IM ONE (03:14)
[2019-08-04] MEDS ORDERED: diphenhydrAMINE 50 MG/ML VIAL IM ONE (03:14)
[2019-08-04] MEDS ORDERED: FAMOTIDINE 20 MG TAB PO ONE (03:16)
[2019-08-04] MEDS ORDERED: dexAMETHasone 20 MG/5 ML VIAL ONE (03:18)
[2019-08-04] MEDS ORDERED: FAMOTIDINE 20 MG TAB ONE (03:18)
== END 2019-08-04 03:15 | disposition home or self-care (01) ==
LOC: ED 19:18
DX: N39.0 Urinary tract infection, site not specified (principal); N76.0 Acute vaginitis; I10 Essential (primary) hypertension; G43.909 Migraine, unspecified, not intractable, without status migrainosus; J45.909 Unspecified asthma, uncomplicated; Z86.73 Personal history of transient ischemic attack (TIA), and cerebral infarction without residual deficits; Z86.69 Personal history of other diseases of the nervous system and sense organs; Z90.49 Acquired absence of other specified parts of digestive tract; Z90.710 Acquired absence of both cervix and uterus; Z98.890 Other specified postprocedural states; Z79.899 Other long term (current) drug therapy; Z88.8 Allergy status to other drugs, medicaments and biological substances
CPT/HCPCS: 36415; 74176; 80053; 81001; 81025; 85025; 87086; 96365; 96372; 96375; 96376; 99284; J0696; J1100; J1200; J2270; J7030

== ENCOUNTER 2019-08-09 20:20 | Emergency (ER) | payer SELFPAY ==
[2019-08-09 20:32] VITALS: BP 147/85
[2019-08-09 21:20] LABS: Bacteria,Urine 1+ /HPF (Negative); Bilirubin,Urine NEG (Negative); Blood,Urine NEG (Negative); Color,Urine Yellow (Yellow); Mucus,Urine FEW /HPF; Protein,Urine <15 mg/dL mg/dL (Negative); Urobilinogen,Urine < 2.0 mg/dL (<2.0)
[2019-08-09 21:23] LABS: HCG Qualitative,Urine Negative (Negative)
--- NOTE | 2019-08-09 21:54 | Emergency Department Report ---
ED Female HPI - General Chief complaint: Urogenital-Female Stated complaint: BLOOD IN URINE DISCHARGE Time Seen by Provider: 08/09/19 21:27 Source: patient, EMS Mode of arrival: Ambulatory Limitations: No Limitations - History of Present Illness Initial comments: Patient is a 44-year-old female presents emergency room with complaints of dysuria that began a week ago. She has associated suprapubic discomfort and nausea. She is able to tolerate p.o. intake. She denies any fever. She does not report any diarrhea, vaginal discharge. She states that she has had some vaginal itching. Patient was evaluated in the emergency department last week and had stable labs, CT abdomen pelvis with no acute process, UA showed evidence of UTI. her urine culture showed usual skin lloyd, could be contamination. Patient was given ceftriaxone, azithromycin, Flagyl, Macrobid. She reports that she completed the course of all medications. Could have Macrobid resistance as she still has evidence of UTI on todays UA, urine culture sent. I discussed findings with patient that we would give her IM ceftriaxone and a prescription for Keflex, Pyridium, Zofran, discussed that she would need full STD panel at the health department or [facility]. Vitals are normal. She has no tachycardia, patient is afebrile. Patient suddenly became enraged and asked to see an ER physician, she refused physical examination. I immediately advised Dr. Tristan Brown, ER attending that patient would like to see a physician, he evaluated pt at bedside. Patient advised Dr. Brown that she "was leaving and going to another hospital" and leaving AMA and she refused to sign AMA form. she also refused antibiotic administration and antibiotic prescription. - Related Data Home Medications Medication Instructions Recorded Confirmed Last Taken Amitriptyline [Elavil] 75 mg PO QHS 08/14/15 09/24/16 1 Day Ago ~02/24/16 75 Divalproex [Tammy Rivera] 1,000 mg PO BID 08/14/15 09/24/16 1 Day Ago ~02/24/16 1000 Topiramate [Topamax] 50 mg PO DAILY 08/14/15 09/24/16 1 Day Ago ~02/24/16 50 Omeprazole Magnesium [PriLOSEC Otc] 20 mg PO QDAY 09/24/16 09/24/16 Unknown Rivaroxaban [Xarelto] 20 mg PO QDAY 09/24/16 09/24/16 Unknown Sucralfate [Carafate] 1 gm PO DAILY 09/24/16 09/24/16 Unknown hydroCHLOROthiazide [HCTZ] 25 mg PO QDAY 09/24/16 09/24/16 Unknown Previous Rx's Medication Instructions Recorded Last Taken Type Rosuvastatin (Nf) [Crestor] 1 tab PO QHS #30 tablet 09/26/16 Unknown Rx lisinopriL [Zestril TAB] 40 mg PO QDAY #30 tablet 09/26/16 Unknown Rx Azithromycin 1,000 mg PO ONCE #2 tablet 08/04/19 Unknown Rx Nitrofurantoin [place]/M-Cryst 100 mg PO BID 7 Days #4 capsule 08/04/19 Unknown Rx [Macrobid CAP] metroNIDAZOLE [Flagyl] 500 mg PO BID 7 Days #14 tab 08/04/19 Unknown Rx Allergies Allergy/AdvReac Type Severity Reaction Status Date / Time acetaminophen [From Fioricet] Allergy Hives Verified 08/09/19 20:22 butalbital [From Fioricet] Allergy Hives Verified 08/09/19 20:22 gabapentin [From Neurontin] Allergy Unknown Verified 08/09/19 20:22 ketorolac tromethamine Allergy Itching Verified 08/09/19 20:22 [From Toradol] levofloxacin [From Levaquin] Allergy Unknown Verified 08/09/19 20:22 naproxen [From Naprosyn] Allergy Swelling Verified 08/09/19 20:22 nitroglycerin Allergy Rash Verified 08/09/19 20:22 NSAIDS (Non-Steroidal Allergy Unknown Verified 08/09/19 20:22 Anti-Inflamma prochlorperazine edisylate Allergy Unknown Verified 08/09/19 20:22 [From Compazine] prochlorperazine maleate Allergy Unknown Verified 08/09/19 20:22 [From Compazine] Sulfa (Sulfonamide Allergy Hives Verified 08/09/14 21:59 Antibiotics) ibuprofen [From Motrin] AdvReac Unknown Verified 08/09/14 21:59 metoclopramide HCl AdvReac Unknown Verified 08/09/14 21:59 [From Reglan] morphine AdvReac Hives Verified 08/04/19 03:30 tramadol AdvReac Shortness Verified 02/06/16 14:57 of Breath ED Review of Systems ROS: Stated complaint: BLOOD IN URINE DISCHARGE Other details as noted in HPI Comment: All other systems reviewed and negative ED Past Medical Hx - Past Medical History Hx Hypertension: Yes Hx CVA: (multiple negative MRI workups for CVA when presented with complic. migraine) Hx Congestive Heart Failure: No Hx Diabetes: No Hx Headaches / Migraines: Yes (hemiplegic, and complicated migraines) Hx Seizures: Yes Hx Kidney Stones: Yes Hx Asthma: Yes Hx COPD: No Additional medical history: pancreatitis,DVT,cervical ca and treatment [id number] - Surgical History Hx Cholecystectomy: Yes Hx Appendectomy: Yes Additional Surgical History: Stents in kidneys and removed, bowel repair, liposuction, partial hysterectomy - Social History Smoking Status: Never Smoker Substance Use Type: None - Medications Home Medications: Home Medications Medication Instructions Recorded Confirmed Last Taken Type Amitriptyline [Elavil] 75 mg PO QHS 08/14/15 09/24/16 1 Day Ago History ~02/24/16 75 Divalproex [Tammy Rivera] 1,000 mg PO BID 08/14/15 09/24/16 1 Day Ago History ~02/24/16 1000 Topiramate [Topamax] 50 mg PO DAILY 08/14/15 09/24/16 1 Day Ago History ~02/24/16 50 Omeprazole Magnesium [PriLOSEC Otc] 20 mg PO QDAY 09/24/16 09/24/16 Unknown History Rivaroxaban [Xarelto] 20 mg PO QDAY 09/24/16 09/24/16 Unknown History Sucralfate [Carafate] 1 gm PO DAILY 09/24/16 09/24/16 Unknown History hydroCHLOROthiazide [HCTZ] 25 mg PO QDAY 09/24/16 09/24/16 Unknown History Rosuvastatin (Nf) [Crestor] 1 tab PO QHS #30 tablet 09/26/16 Unknown Rx lisinopriL [Zestril TAB] 40 mg PO QDAY #30 tablet 09/26/16 Unknown Rx Azithromycin 1,000 mg PO ONCE #2 tablet 08/04/19 Unknown Rx Nitrofurantoin [place]/M-Cryst 100 mg PO BID 7 Days #4 capsule 08/04/19 Unknown Rx [Macrobid CAP] metroNIDAZOLE [Flagyl] 500 mg PO BID 7 Days #14 tab 03/24/20 Unknown Rx ED Physical Exam - General Limitations: No Limitations, Other (pt refused examination) ED Course Vital Signs 08/09/19 20:26 Temperature 98.3 F Pulse Rate 88 Respiratory 20 Rate Blood Pressure 147/85 O2 Sat by Pulse 96 Oximetry Critical care attestation.: If time is entered above; I have spent that time in minutes in the direct care of this critically ill patient, excluding procedure time. ED Disposition Clinical Impression: Suprapubic pain, Nausea UTI (urinary tract infection) Qualifiers: Urinary tract infection type: acute cystitis Hematuria presence: with hematuria Qualified Code(s): N30.01 - Acute cystitis with hematuria Disposition: LEFT AGAINST MED ADVICE Is pt being admited?: No Does the pt Need Aspirin: No Condition: Undetermined Additional Instructions: You are leaving today AGAINST MEDICAL ADVICE, which may lead to , disability, permanent loss of quality of life, severe infection. Please return to the emergency room immediately or to primary care doctor, health department, [facility], urologist. please have a full STD panel done by the health department or a clinic. You need antibiotics for a urinary tract infection. and you refused them today (08/09/2019) Referrals: PRIMARY CARE, [Primary Care Provider] - REMY CARROLL MD [Staff Physician] - [facility] [Provider Group] - [facility] [Outside] - [facility] Forms: AMA Form Time of Disposition: 21:40 Print Language: CITIZEN OF [place]
== END 2019-08-09 21:42 | disposition left against medical advice (07) ==
LOC: ED 20:20
DX: N39.0 Urinary tract infection, site not specified (principal); I10 Essential (primary) hypertension; J45.909 Unspecified asthma, uncomplicated; G43.909 Migraine, unspecified, not intractable, without status migrainosus; Z86.718 Personal history of other venous thrombosis and embolism; Z79.01 Long term (current) use of anticoagulants; Z90.49 Acquired absence of other specified parts of digestive tract; Z90.710 Acquired absence of both cervix and uterus; Z79.899 Other long term (current) drug therapy
CPT/HCPCS: 81001; 81025; 87086